=== PATIENT | male | born 2000 | race Caucasian/White ===

== ENCOUNTER 2019-12-27 02:36 | Emergency (ER) | payer OTHER ==
[2019-12-27 03:05] VITALS: TEMP 98.6; BMI 29.8
--- NOTE | 2019-12-27 03:08 | PDOC ---
History of Present Illness - General Stated Complaint: CHEST PAIN Time Seen by Provider: 12/27/19 02:50 - History of Present Illness Initial Comments: Spencer Hernández is a 19 y/o male with no reported PMH presenting today with chest pain. Works as [employer]. Started shift at 9pm. 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 Denies shortness of breath. Denies headache/dizziness. Denies back p ain. Denies abdominal pain. Denies leg swelling. Denies fever/chills. Denies cough. No pain radiation. No nausea/vomiting. Reports that he has been stressed with work and school. No trauma. Gradual onset of pain. SocHx: never smoker FamHx: no cardiac fam hx Past History - Psycho-Social/Smoking History Smoking History: Never smoked Have you smoked in the past 12 months: No Information on smoking cessation initiated: No - Substance Abuse Hx (Audit-C & DAST Scrn) How often the patient has a drink containing alcohol: Monthly or less Number of drinks the patient has on a typical day: 1 or 2 How often the patient has six or more drinks on one occasion: Less than monthly Score: In Men: 4 or > Positive; In Women: 3 or > Positive: 2 Screen Result (Pos requires Nsg. Audit-10AR): Negative In the last yr the pt used illegal drug/Rx for NonMed reason: No Score: Yes response is considered Positive: 0 Screen Result (Positive result requires Nsg. DAST-10): Negative Review of Systems - Review of Systems Comments:: GENERAL/CONSTITUTIONAL: No fever or chills. No weakness._ HEAD, EYES, EARS, NOSE AND THROAT: No change in vision. No change in hearing. No sore throat._ CARDIOVASCULAR: Reports pressure like chest pain. No shortness of breath_ RESPIRATORY: Denies cough, hemoptysis_ GASTROINTESTINAL: No nausea, vomiting, diarrhea or constipation._ GENITOURINARY: No dysuria, frequency, or change in urination._ MUSCULOSKELETAL: No joint or muscle swelling or pain. No neck or back pain._ SKIN: No rash_ NEUROLOGIC: No headache, vertigo, loss of consciousness, or change in strength/sensation._ ENDOCRINE: No increased thirst. No abnormal weight change_ HEMATOLOGIC/LYMPHATIC: No anemia, easy bleeding, or history of blood clots._ ALLERGIC/IMMUNOLOGIC: No hives or skin allergy._ *Physical Exam - Vital Signs Last Vital Signs Temp Pulse Resp BP Pulse Ox 98.6 F 74 16 132/88 99 12/27/19 02:45 12/27/19 04:15 12/27/19 04:15 12/27/19 04:15 12/27/19 04:15 - Physical Exam GENERAL: Awake, alert, and oriented to person/place/time, in no acute distress_ HEAD: No signs of trauma, normocephalic, atraumatic _ EYES: PERRLA, EOMI, sclera anicteric, conjunctiva clear_ ENT: Hearing grossly normal, nares patent, oropharynx clear without exudates. No uvular deviation. Moist mucosa_ NECK: Normal ROM, supple, no lymphadenopathy, JVD, or masses_ LUNGS: No distress, speaks in full sentences, clear to auscultation bilaterally _ CHEST: No obvious TTP. No bruising. No trauma. HEART: Regular rate and rhythm, normal S1 and S2, no murmurs appreciated, peripheral pulses normal and equal bilaterally._ ABDOMEN: Soft, nontender, normoactive bowel sounds. No guarding, no rebound. No masses_ EXTREMITIES: Normal inspection, Normal range of motion, no edema. No clubbing or cyanosis_ NEUROLOGICAL: Cranial nerves II through XII grossly intact. Normal speech, normal gait, no focal sensorimotor deficits _ SKIN: Warm, Dry, normal turgor, no rashes or lesions noted_ ED Treatment Course - LABORATORY CBC & Chemistry Diagram: 12/27/19 03:05 12/27/19 03:05 - ADDITIONAL ORDERS Additional order review: 12/27/19 03:05 RBC 4.74 MCV 90.4 MCHC 33.2 RDW 13.2 MPV 9.0 Neutrophils % 54.8 Lymphocytes % 34.6 Monocytes % 8.7 Eosinophils % 1.2 Basophils % 0.7 - RADIOLOGY Radiology Studies Ordered: Category Date Time Status CHEST X-RAY PORTABLE* [RAD] Stat Radiology 12/27/19 03:11 Completed Medical Decision Making - Medical Decision Making 19M no significant PMH presenting today with left sided chest pain and pressure that started at 11pm. HEART score 0. -cbc, cmp -ekg, trop, cxr 12/27/19 03:07 EKG shows 80 bpm, NSR, no ST elevation, QTc 401, no axis deviation. 12/27/19 04:02 Labs reviewed. Laboratory Last Values WBC 7.6 K/mm3 (4.0-10.0) 12/27/19 03:05 RBC 4.74 M/mm3 (4.00-5.60) 12/27/19 03:05 Hgb 14.3 GM/dL (11.7-16.9) 12/27/19 03:05 Hct 42.9 % (35.4-49) 12/27/19 03:05 MCV 90.4 fl (80-96) 12/27/19 03:05 MCH 30.0 pg (25.7-33.7) 12/27/19 03:05 MCHC 33.2 g/dl (32.0-35.9) 12/27/19 03:05 RDW 13.2 % (11.9-15.9) 12/27/19 03:05 Plt Count 274 K/MM3 (134-434) 12/27/19 03:05 MPV 9.0 fl (7.5-11.1) 12/27/19 03:05 Absolute Neuts (auto) 4.1 K/mm3 (1.5-8.0) 12/27/19 03:05 Neutrophils % 54.8 % (42.8-82.8) 12/27/19 03:05 Lymphocytes % 34.6 % (8-40) 12/27/19 03:05 Monocytes % 8.7 % (3.8-10.2) 12/27/19 03:05 Eosinophils % 1.2 % (0-4.5) 12/27/19 03:05 Basophils % 0.7 % (0-2.0) 12/27/19 03:05 Nucleated RBC % 0 % (0-0) 12/27/19 03:05 Sodium 139 mmol/L (136-145) 12/27/19 03:05 Potassium 4.5 mmol/L (3.5-5.1) 12/27/19 03:05 Chloride 105 mmol/L (98-107) 12/27/19 03:05 Carbon Dioxide 29 mmol/L (21-32) 12/27/19 03:05 Anion Gap 5 MMOL/L (8-16) L 12/27/19 03:05 BUN 19.0 mg/dL (7-18) H 12/27/19 03:05 Creatinine 0.8 mg/dL (0.55-1.3) 12/27/19 03:05 Est GFR (CKD-EPI)AfAm 149.04 12/27/19 03:05 Est GFR (CKD-EPI)NonAf 128.60 12/27/19 03:05 Random Glucose 99 mg/dL (74-106) 12/27/19 03:05 Calcium 9.2 mg/dL (8.5-10.1) 12/27/19 03:05 Total Bilirubin 0.5 mg/dL (0.2-1) 12/27/19 03:05 AST 16 U/L (15-37) 12/27/19 03:05 ALT 28 U/L (13-61) 12/27/19 03:05 Alkaline Phosphatase 93 U/L (45-117) 12/27/19 03:05 Creatine Kinase 100 U/L (26-308) 12/27/19 03:05 Troponin I < 0.02 ng/ml (0.00-0.05) 12/27/19 03:05 Total Protein 7.9 g/dl (6.4-8.2) 12/27/19 03:05 Albumin 4.2 g/dl (3.4-5.0) 12/27/19 03:05 CXR negative for acute chest pathology. Pt stable for d/c. Plan to d/c with PCP and cards f/u. All questions answered. Return precautions given. Pt verbalized understanding and agreement with plan. Discharge - Discharge Information Problems reviewed: Yes Clinical Impression/Diagnosis: Chest pressure Condition: Stable Disposition: HOME - Admission No - Follow up/Referral Referrals: [facility] [place] [facility] at [place] [Provider Group] Ren Nixon MD [Staff Physician] - - Patient Discharge Instructions Patient Printed Discharge Instructions: DI for Chest Pain Additional Instructions: Please make a follow up appointment with a primary care doctor and assistant store manager operations (referrals provided). If you experience any new, worsening, or concerning symptoms, including worsening chest pain, shortness of breath, headache, dizziness, leg swelling, or any other concerns, please return to the emergency room. - Post Discharge Activity
[2019-12-27 03:28] LABS: BASO % 0.7 % (0-2.0); EOS % 1.2 % (0-4.5); HEMATOCRIT 42.9 % (35.4-49); HEMOGLOBIN 14.3 GM/dL (11.7-16.9); LYMPH % 34.6 % (8-40); MCHC 33.2 g/dl (32.0-35.9); MEAN CELL VOLUME 90.4 fl (80-96); MONO % 8.7 % (3.8-10.2); NEUT % 54.8 % (42.8-82.8); PLATELET COUNT 274 K/MM3 (134-434); RBC 4.74 M/mm3 (4.00-5.60); RDW 13.2 % (11.9-15.9); WHITE BLOOD COUNT 7.6 K/mm3 (4.0-10.0)
--- NOTE | 2019-12-27 03:47 | PDOC ---
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 Pain continued even after he dropped a pt off at [facility]. [place] and his BP was 130s; then he came to the ER and BP was 148 systlic. Pt admits he was nervous. Pt is 19 yo, non smoker, no drugs, no fam hx, no obesity. Pt states that he feels fine and he wants to go home. - Physicial Exam PE: 12/27/19 03:44 Normal exam Normal neuro exam normal HEENT Normal heart and lungs; normal abd; no flank pain No fever no cough pt has no musculoskeletal pain Pt has normal EKG - Medical Decision Making 12/27/19 03:45 labs, CXR, EKG and pt will be sent home. 12/27/19 03:57 Labs normal CXR normal Heart Score/ECG Review - History History: Slightly suspicious - Electrocardiogram EKG: Normal - Age Age: </= 45 - Risk Factors Based on the list above the patient has:: No risk factors known - Troponin Troponin: </= normal limit - Score Heart Score - Total: 0 - ECG Intrepretation Rhythm: Regular Rhythm - [place]: Normal - P and NV Prominent R with upright T in V1 (true posterior MT): No Delta Wave(s) Present: No WPW: No - QRS Poor R Wave Progression: No Q Wave Present: No - ST and T Early Repolarization: No Non Specific ST-T Wave changes: No Flattened T Waves: No Prolonged Q-T Interval: No - ECG Impressions Normal ECG: Yes Non-specific ST Elevation: No Ischemic Changes: No Bradycardia: No Torsades karen Pointes: No WPW: No Discharge - Discharge Information Problems reviewed: Yes Clinical Impression/Diagnosis: Chest pressure Condition: Stable Disposition: HOME - Follow up/Referral Referrals: [facility] [place] Internal [facility] at [place] [Provider Group] Ren Nixon MD [Staff Physician] - - Patient Discharge Instructions Patient Printed Discharge Instructions: DI for Chest Pain Additional Instructions: Please make a follow up appointment with a primary care doctor and pin pusher (referrals provided). If you experience any new, worsening, or concerning symptoms, including worsening chest pain, shortness of breath, headache, dizziness, leg swelling, or any other concerns, please return to the emergency room. - Post Discharge Activity
[2019-12-27 03:51] LABS: ALBUMIN 4.2 g/dl (3.4-5.0); ALK PHOS 93 U/L (45-117); ANION GAP 5 MMOL/L (8-16); BILIRUBIN,TOTAL 0.5 mg/dL (0.2-1); CALCIUM 9.2 mg/dL (8.5-10.1); CHLORIDE 105 mmol/L (98-107); CO2 29 mmol/L (21-32); CREATININE 0.8 mg/dL (0.55-1.3); GLUCOSE,RANDOM 99 mg/dL (74-106); POTASSIUM 4.5 mmol/L (3.5-5.1); SGOT/AST 16 U/L (15-37); SGPT/ALT 28 U/L (13-61); SODIUM 139 mmol/L (136-145); TOT PROT 7.9 g/dl (6.4-8.2)
[2019-12-27 04:16] VITALS: BP 132/88; PULSE 74
--- NOTE | 2019-12-27 14:03 | EKG ---
Test Reason : Blood Pressure : / mmHG Vent. Rate : 080 BPM Atrial Rate : 080 BPM P-R Int : 146 ms QRS Dur : 088 ms QT Int : 348 ms P-R-T Axes : 061 066 042 degrees QTc Int : 401 ms NORMAL SINUS RHYTHM NORMAL ECG NO PREVIOUS ECGS AVAILABLE Confirmed by CATARINA MCKOY MD ([id number]) on 12/27/2019 2:02:26 PM Referred By: Confirmed By:CATARINA MCKOY MD
== END 2019-12-27 04:20 | disposition home or self-care (01) ==
LOC: JER 02:36
DX: R07.89 Other chest pain (principal)
CPT/HCPCS: 36415; 71045-TC-FY; 80053; 82550; 84484; 85025; 93005; 93010; 99283-25